=== PATIENT | female | born 1965 | race Caucasian/White ===

== ENCOUNTER 2024-06-28 14:00 | Outpatient (CLI) | payer BC | END 2024-06-28 14:01 | disposition home or self-care (01) | LOC: DTY/OP 14:00 | PROVIDERS: ATTEND Family Medicine | DX: E11.9 Type 2 diabetes mellitus without complications (principal); E78.2 Mixed hyperlipidemia; I10 Essential (primary) hypertension; Z68.41 Body mass index [BMI] 40.0-44.9, adult | CPT/HCPCS: 97802 ==